=== PATIENT | male | born 1995 | race Caucasian/White ===

== ENCOUNTER 2018-12-14 15:56 | Emergency (ER) | payer BC, OTHER ==
--- NOTE | 2018-12-14 18:10 | EDM.PDOC ---
ED HPI GENERAL MEDICAL PROBLEM - General Chief Complaint: Chest Pain Stated Complaint: CHEST PAIN AND HBP SENT BY [facility] Time Seen by Provider: 12/14/18 16:24 Source of Information: Reports: Patient, RN Notes Reviewed - History of Present Illness INITIAL COMMENTS - FREE TEXT/NARRATIVE: 23 old male has been sent over from [facility] due to an episode of chest discomfort one week ago and then elevated blood pressure and heart rate today. He states he had a brief episode of left-sided chest discomfort about one week ago that has very rarely bothered him since that time. He is healthy on no meds. Because his blood pressure was recently elevated he did totally stop caffeine about a week ago. He had been drinking up to about a pot of coffee per day. He has been having some headache symptoms since that time. Also this afternoon he did develop palpitations prompting the clinic visit. At this time he denies chest pain shortness of breath or palpitations. Blood pressure and heart rate was noted to be elevated at time of triage. Chest Pain Score (Numeric/FACES): 2 - Related Data Allergies Allergy/AdvReac Type Severity Reaction Status Date / Time cefixime [From Suprax] Allergy Cannot Verified 12/14/18 16:14 Remember Home Meds: Home Meds . [No Known Home Meds] 12/14/18 [History] Past Medical History - Past Health History Medical/Surgical History: Denies Medical/Surgical History Social & Family History - Tobacco Use Smoking Status *Q: Never Smoker ED ROS GENERAL - Review of Systems Review Of Systems: See Below Constitutional: Denies: Fever, Chills, Diaphoresis HEENT: Denies: Sinus Problem, Throat Pain Respiratory: Denies: Shortness of Breath Cardiovascular: Reports: Chest Pain (occasional brief episodes this past week) , Palpitations. Denies: Lightheadedness GI/Abdominal: Denies: Abdominal Pain, Nausea, Vomiting Musculoskeletal: Denies: Neck Pain, Shoulder Pain, Arm Pain, Back Pain Skin: Reports: No Symptoms Neurological: Reports: No Symptoms ED EXAM, GENERAL - Physical Exam Exam: See Below General Appearance: Alert, Anxious (mild) Eye Exam: Bilateral Eye: PERRL Throat/Mouth: Normal Inspection, Normal Oropharynx Head: Atraumatic. No: Facial Swelling Neck: Supple, Full Range of Motion Respiratory/Chest: No Respiratory Distress, Lungs Clear, Normal Breath Sounds, Other (Mild tenderness L lower sternal border, pectoral margin) Cardiovascular: Regular Rate, Rhythm GI/Abdominal: Soft, Non-Tender Back Exam: No: CVA Tenderness (L), CVA Tenderness (R) Extremities: Normal Inspection, Normal Range of Motion Neurological: Alert, Oriented, No Motor/Sensory Deficits Skin Exam: Warm, Dry, Normal Color EKG INTERPRETATION EKG Date: 12/14/18 Rhythm: NSR Rate (Beats/Min): 100 [place]: Normal P-Wave: Present (pr interval is short) QRS: Normal ST-T: Other (T-wave inversion in lead 3, T-wave flattening inferior leads and also V3V5) Course - Vital Signs Last Recorded V/S: Last Vital Signs Temp 97.5 F 12/14/18 16:12 Pulse 123 H 12/14/18 16:12 Resp 16 12/14/18 16:12 BP 159/96 H 12/14/18 16:12 Pulse Ox 97 12/14/18 16:12 - Orders/Labs/Meds Labs: Laboratory Tests 12/14/18 Range/Units 17:05 Sodium 140 (136-145) mEq/L Potassium 4.5 (3.5-5.1) mEq/L Chloride 104 (98-107) mEq/L Carbon Dioxide 28 (21-32) mEq/L Anion Gap 12.5 (5-15) BUN 17 (7-18) mg/dL Creatinine 1.2 (0.7-1.3) mg/dL Est Cr Clr Drug Dosing 98.01 mL/min Estimated GFR (MDRD) > 60 (>60) mL/min BUN/Creatinine Ratio 14.2 (14-18) Glucose 105 (74-106) mg/dL Calcium 9.3 (8.5-10.1) mg/dL Total Bilirubin 0.3 (0.2-1.0) mg/dL AST 12 L (15-37) U/L ALT 23 (16-63) U/L Alkaline Phosphatase 68 (46-116) U/L Total Protein 7.3 (6.4-8.2) g/dl Albumin 4.3 (3.4-5.0) g/dl Globulin 3.0 gm/dL Albumin/Globulin Ratio 1.4 (1-2) TSH 3rd Generation 1.217 (0.358-3.74) uIU/mL - Re-Assessments/Exams Free Text/Narrative Re-Assessment/Exam: 12/14/18 18:20 Patient said he had labs checked just a month or so ago at the clinic so I did not repeat his CBC, he has good facial and skin color and not worried about anemia. Chemistries did come back normal. I did check a TSH and that also came back normal. BP and heart rate were high at time of triage but have come come down to where blood pressure now is 128/76 and heart rate running in the 80s and low 90s. He does have some chest wall tenderness. There's been no ectopy. Discharge instructions as documented. Departure - Departure Time of Disposition: 18:21 Disposition: Home, Self-Care 01 Condition: Fair Clinical Impression: Chest wall pain, Palpitations Instructions: Chest Wall Pain, [id number], Palpitations, [id number] Referrals: Niranjan Ojeda MD [Primary Care Provider] - Forms: ED Department Discharge Additional Instructions: Your heart and lungs checked out well today, continue with healthy diet and regular exercise program. The chest wall discomfort should resolve over the next 7-10 days, you can take Advil or ibuprofen if needed for severe discomfort. Get a blood pressure unit and check some readings, heart rate and blood pressure once or twice daily for the next couple of weeks or so. Follow- up with a clinic provider in about 2 weeks. Return to ED as needed.
== END 2018-12-14 18:30 | disposition home or self-care (01) ==
LOC: JD.ED 15:56
DX: R07.89 Other chest pain (principal); R00.2 Palpitations; Z88.1 Allergy status to other antibiotic agents
CPT/HCPCS: 36415; 80053; 84443; 93005; 93010; 99283; 99285-25